=== PATIENT | male | born 1965 | race Caucasian/White ===

== ENCOUNTER 2024-10-02 11:29 | Outpatient (CLI) | payer OTHER, SELFPAY ==
--- OUTSIDE RECORDS SUMMARY | 2024-10-02 11:41 | XMS_ITS | Clinical Summary ---
Author Organization [facility] Address [address] [address] Phone Care Team Providers Care Cosmetology Instructor Name Role Phone Unavailable Primary Care Provider Unavailabl e Allergies Active Allergy Reactions Criticality Noted Date Comments Tanmay Inhibitors Other (see Comments) 12/21/2015 cough cough Medications ASPIRIN PO 81 mg. Active CINNAMON PO Take by mouth. Active Blood Glucose Monitoring Suppl (D-CARE GLUCOMETER) w/Device Kit Check BS once daily 1 Kit 06/17/2017 Active rOPINIRole (REQUIP) 1 MG Tablet TAKE 1 TABLET NIGHTLY 90 Tab 3 02/23/2018 Active simvastatin (ZOCOR) 20 MG Tablet TAKE 1 TABLET NIGHTLY 90 Tab 3 06/01/2018 Active FENOFIBRATE 160 MG Tablet TAKE 1 TABLET EVERY DAY 90 Tab 3 06/01/2018 Active esomeprazole (NEXIUM) 40 MG CAPSULE DELAYED RELEASE TAKE 1 CAPSULE EVERY DAY 90 Cap 3 06/08/2018 Active metFORMIN (GLUCOPHAGE) 1000 MG Tablet TAKE 1 TABLET BY MOUTH 2 TIMES DAILY (WITH MEALS). 180 Tab 2 08/20/2018 Active hydroCHLOROthia zide 25 MG Tablet Take 1 Tab by mouth daily. 90 Tab 3 12/11/2018 Active losartan (COZAAR) 100 MG Tablet TAKE 1 TABLET EVERY DAY 90 Tab 2 02/15/2019 Active diclofenac (VOLTAREN) 50 MG Tablet Delayed Response Take 1 Tab by mouth 2 times daily. 60 Tab 3 04/14/2019 Active Glucose Blood Strip Use once daily. DX E11.9 100 Strip 3 05/20/2019 Active candesartan (ATACAND) 32 MG Tablet Take 1 Tab by mouth daily. 90 Tab 06/01/2019 Active Active Problems Problem Noted Date Diagnosed Date Lumbar facet arthropathy 03/16/2019 Lumbar radiculopathy 03/16/2019 Type 2 diabetes mellitus wit hout complication, without long-term current use of insulin 10/26/2018 Lumbar foraminal stenosis 08/08/2017 SI (sacroiliac) joint dysfunction 08/08/2017 RLS (restless legs syndrome) 08/15/2015 HTN (hypertension) Dyslipidemia Acid reflux Sleep apnea Immunizations Immunization Administration Dates Next Due Influenza Vaccine, Quadrivalent, PF 05/03/2019,1 07/12/2017,06/17/2017 Pneumococcal Vaccine Adult - 23 Valent 8 Family History Medical History Relation Name Comments Heart Attack Father Cancer Mother brain tumor - g lioblastoma Heart Attack Mother Relation Name Status Comments Father Mother Social History Tobacco Use Types Packs/Day Years Used Date Smoking Tobacco: Former Cigarettes 1 15 0 07/24/1993 - 07/24/2008 Smokeless Tobacco: Never Tobacco Cessation:Counseling Given: No Alcohol Use Standard Drinks/Week Comments Yes 3 (1 standard drink = 0.6 oz pur e alcohol) PHQ-2 Answer Date Recorded PHQ-2 Score 0 02/01/2019 Sex and Gender Information Value Date Recorded Sex Assigned at Not on file Legal Sex Male 10:28 PM CDT Gender Identity Not on file Sexual Orientation Not on file Last Filed Vital Signs Vital Sign Reading Time Taken Comments Blood Pressure 112/60 05/03/2019 9:21 AM SALSA DANCE INSTRUCTOR Pulse 78 05/03/2019 9:21 AM SALSA DANCE INSTRUCTOR Temperature 36.7 C (98 F) 05/03/2019 9:21 AM SALSA DANCE INSTRUCTOR Respiratory Rate 20 05/03/2019 9:21 AM SALSA DANCE INSTRUCTOR Oxygen Saturation 98% 05/03/2019 9:21 AM SALSA DANCE INSTRUCTOR Inhaled Oxygen Concentration - - Weight 80.8 kg (178 lb 1.6 oz) 05/03/2019 9:21 A M SALSA DANCE INSTRUCTOR Height 167.6 cm (5' 6 ) 05/03/2019 9:21 AM SALSA DANCE INSTRUCTOR Body Mass Index 28.75 05/03/2019 9:21 AM SALSA DANCE INSTRUCTOR Plan of Treatment Health Maintenance Due Date Last Done Comments Diabetes: Eye Exam 1966 Diabetes: Foot Exam 1966 Hepatitis C Virus (HCV) Screening 1966 TdaP Immunization 1966 Hepatitis B Immunization (1 of 3 - 19+ 3-dose series) 1985 Cologuard 2016 Immunochemical Fecal Occult Blood 2016 Zoster Immunization (1 of 2) 2016 Pneumococcal Immunization (50+ years) (2 of 2 - PCV) 05/11/2019 05/11/2018 Diabetes: Hemoglobin A1c 04/09/2020 020, 04/25/2019, 10/24/2018, Additional history exists Diabetes: Nephropathy Screening 10/07/2020 10/08/2019, 04/25/2019, 04/25/2019, Additional history exists Colonoscopy 07/25/2023 07/24/2018 Colorectal Cancer Screening 07/25/2023 Influenza Immunization (#1) 01/25/202401/2019, 05/11/2018, 06/17/2017 SARS-COV-2 Immunization ( season) 2024 06/09/2021, 08/23/2020 Respiratory Syncytial Virus (RSV) Immunization (Adult) (1 - 1-dose 75+ series) 2041 07/24/2018 Pneumococcal Immunization Combined Discontinued 05/11/2018 PSA Discussion Completed 10/08/2019, 05/2018, 09/27/2017 Meningococcal Immunization (ACWY) Aged Out No longer eligible based on patient's age to complete this topic Rotavirus Immunization Aged Out No lo nger eligible based on patient's age to complete this topic Procedures Procedure Name Priority Date/Time Associated Diagnosis Comments CMP (COMPREHENSIVE METABOLIC PANEL) Routine 10/08/2019 Well controlled diabetes mellitus (HCC) HEMOGLOBIN A1C W/ ESTIMATED GLUCOSE Routine 10/08/2019 Well controlled diabetes mellitus (HCC) PSA SCREEN Routine 10/08/2019 Screening for prostate cancer from Last 3 Months or Most Recently Relevant to Health Maintenance Results * HEMOGLOBIN A1C W/ ESTIMATED GLUCOSE (10/08/2019) HGB-A1C 6.4 % Blood specimen (specimen) 10/08/2019 us Ida Reed MD CHEMISTRY ORDERABLES Final Result * PSA SCREEN (10/08/2019) PSA (PROSTATE SPECIFIC ANTIGEN) 1.23 ng/mL Blood specimen (specimen) 10/08/2019 us Ida Reed MD CHEMISTRY ORDERABLES Final Result * CMP (COMPREHENSIVE METABOLIC PANEL) (10/08/2019) Blood specimen (specimen) us Ida Reed MD CHEMISTRY ORDERABLES Final Result from Last 3 Months or Most Recently Relevant to Health Maintenance
--- OUTSIDE RECORDS SUMMARY | 2024-10-02 11:41 | XMS_ITS | Clinical Summary ---
Author Organization [facility] Address [facility] [place] [address] Care Team Providers Care Division Controller Name Role Phone Tommie Rose MD Unavailable [phone] Ana Fajardo NP Unavailable [phone] Non-Staff, Provider Primary Care Provider Unavai lable Allergies Active Allergy Reactions Criticality Noted Date Comments Tanmay Inhibitors Cough,Other (see comment) 2015 cough Medications losartan 100 MG tablet Take 1 tablet by mouth daily. 10/31/2015 Active esomeprazole 40 MG capsule Take 40 mg by mouth every morning before breakfast. Active ropinirole 1 MG tablet Take 1 mg by mouth nightly at bedtime. Active simvastatin 20 MG tablet Take 20 mg by mouth nightly at bedtime. Active aspirin EC 81 MG EC tablet Take 81 mg by mouth daily. Active hydrochlorothia zide 25 MG tablet Take 25 mg by mouth every morning. Active fenofibrate 160 MG tablet Take 160 mg by mouth daily. 4 08/18/2018 Active metFORMIN 1000 MG tablet Take 1,000 mg by mouth 2 (two) times daily. With meals 2 11/07/2018 Active Active Problems Problem Noted Date Diagnosed Date Acid reflux 11/09/2018 Dyslipidemia 11/09/2018 Sebaceous cyst 11/06/2018 Type 2 diabetes mellitus wit hout complication, without long-term current use of insulin ([facility]) 10/26/2018 Lumbar foraminal stenosis 08/08/2017 SI (sacroiliac) joint dysfunction 08/08/2017 Shortness of breath on exertion 12/21/2015 RLS (restless legs syndrome) 08/15/2015 Sleep apnea HTN (hypertension) Hyperlipidemia, mixed Family history of heart disease Family History Medical History Relation Comments Cancer Brother Heart Attack Father Cancer Mother Diabetes Mother Heart Attack Mother Relation Status Comments Brother Father Mother Social History Tobacco Use Types Packs/Day Years Used Date Smoking Tobacco: Former Cigarettes 1 15 1 994 - 2009 Smokeless Tobacco: Never Alcohol Use Standard Drinks/Week Comments Yes 23.3 (1 standard drink = 0.6 oz pure alcohol) Sex and Gender Information Value Date Recorded Sex Assigned at Male 11/06/2018 9:45 AM CDT Legal Sex Male 8:54 AM CDT Gender Identity Male 11/06/2018 9:45 AM CDT Sexual Orientation Not on file Last Filed Vital Signs Vital Sign Reading Time Taken Comments Blood Pressure 133/85 11/09/2018 2:29 PM CDT Pulse 85 11/09/2018 2:29 PM CDT Temperature 36.3 C (97.3 F) 11/09/2018 2:29 PM CDT Respiratory Rate 16 12/21/2015 12:48 PM CDT Oxygen Saturation - - Inhaled Oxygen Concentration - - Weight 87.5 kg (193 lb) 12/21/2015 12:48 PM CDT Height 170.2 cm (5' 7 ) 12/21/2015 12:48 PM CDT Body Mass Index 30.23 12/21/2015 12:48 PM CDT Plan of Treatment Health Maintenance Due Date Last Done Comments Colorectal Cancer Screening Colonoscopy (10 Years) 1966 Kidney Health Evaluation 1966 Hemoglobin A1C 1966 Lipid Panel 1966 Annual Physical 1969 Diabetes: Retinopathy Eye Exam 1984 Hepatitis C 1984 DTaP, Tdap and Td Vaccines ( 1 - Tdap) 1985 Hepatitis B Vaccines (1 of 3 - 19+ 3-dose series) 1985 Zoster Vaccines (1 of 2) 2016 Pneumococcal Vaccine: 50+ Ye ars (2 of 2 - PCV) 05/11/2019 05/11/2018 COVID-19 Vaccine ( - 2023-2 5 season) 2024 Meningococcal B Vaccine Aged Out No l onger eligible based on patient's age to complete this topic Meningococcal Vaccine Aged Out No melony melina eligible based on patient's age to complete this topic RSV Immunizations Under 20 Months Aged Out No longer eligible based on patient's age to complete this topic Insurance [employer] Care Teams Division Controller Relationship Specialty Start Date End Date Non-Staff, Provider [address] [place] [address] PCP - General 12/21/15 Tommie Rose MD Britton Sort Supervisor CARDIOVASCULAR DISEASE 12/13/15 Ana Fajardo NP [address] [place] [address] NURSE PRACTITIONER 12/13/15
[2024-10-02 12:51] LABS: Alanine Aminotransferase 45 U/L (6-50); Albumin Level 4.9 g/dL (3.5-5.1); Alkaline Phosphatase 41 U/L (38-126); Anion Gap 11 mmol/L (4-12); Aspartate Amino Transferase 55 U/L (17-59); Bilirubin,Total 0.8 mg/dL (0.2-1.3); Blood Urea Nitrogen 19 mg/dL (9-20); Calcium 9.9 mg/dL (8.4-10.2); Carbon Dioxide 27 mmol/L (22-30); Chloride 101 mmol/L (98-107); Estimated Glomerular Filt Rate 49; Glucose 127 mg/dL (65-110); Potassium 4.4 mmol/L (3.4-5.0); Sodium 139 mmol/L (137-145)
[2024-10-02 13:19] LABS: Prostate Specific Antigen 2.1 ng/mL (< OR = 4.0)
== END 2024-10-02 11:30 | disposition home or self-care (01) ==
DX: N40.0 Benign prostatic hyperplasia without lower urinary tract symptoms (principal); I10 Essential (primary) hypertension; E11.9 Type 2 diabetes mellitus without complications
CPT/HCPCS: 36415; 80053; 83036; 84153; G0103

== ENCOUNTER 2025-04-28 10:26 | Outpatient (CLI) | payer OTHER, SELFPAY ==
[2025-04-28 10:50] LABS: Hematocrit 41.2 % (42.0-52.0); Hemoglobin 14.0 g/dL (14.0-18.0); Immature Granulocyte Percent A 0.2 % (0-0.5); Lymphocytes Absolute Auto 1.94 K/mm3 (0.9-3.2); Mean Corpuscular HGB Conc 34.0 g/dl (32-36); Mean Corpuscular Hemoglobin 31.0 pg (26-34); Mean Corpuscular Volume 91.4 fl (80-100); Nucleated Red Blood Cells Absolute Auto 0.000 K/mm3 (0.0-0.012); Nucleated Red Blood Cells Perc 0.0 % (0.0-0.2); Platelet Count Result 183 k/mm3 (150-375); Red Blood Count 4.51 M/mm3 (4.6-6.20); White Blood Count 5.9 K/mm3 (4.5-10.0)
[2025-04-28 10:55] LABS: Add Urine Microscopic? YES; Appearance Urine Clear (Clear); Glucose Urine UA Trace mg/dL (Negative); Leukocyte Esterase Ur Negative LEU/UL (Negative); Nitrate Urine Negative (Negative); Non Pathogenic Casts 0-2; Specific Grav Ur 1.026 (1.001-1.035)
[2025-04-28 10:59] LABS: Hemoglobin A1C 7.5 % (<5.7)
[2025-04-28 11:03] LABS: Anion Gap 5 mmol/L (4-12); Blood Urea Nitrogen 27 mg/dL (9-20); Calcium 9.4 mg/dL (8.4-10.2); Carbon Dioxide 27 mmol/L (22-30); Chloride 107 mmol/L (98-107); Cholesterol 151 mg/dL (0-200); Estimated Glomerular Filt Rate 52; Glucose 144 mg/dL (65-110); HDL Direct 36 mg/dL; Potassium 4.2 mmol/L (3.4-5.0); Sodium 139 mmol/L (137-145); Triglycerides 138 mg/dL (<150)
[2025-04-28 11:39] LABS: Prostate Specific Antigen 1.3 ng/mL (< OR = 4.0)
--- OUTSIDE RECORDS SUMMARY | 2025-04-28 11:45 | XMS_ITS | Clinical Summary ---
Author Organization [facility] Address [address] [address] Phone Care Team Providers Care Head Sampler Name Role Phone Unavailable Primary Care Provider [...] Comments Blood Pressure 112/60 05/03/2019 9:21 AM BUTTON PUSHER Pulse 78 05/03/2019 9:21 AM BUTTON PUSHER Temperature 36.7 C (98 F) 05/03/2019 9:21 AM BUTTON PUSHER Respiratory Rate 20 05/03/2019 9:21 AM BUTTON PUSHER Oxygen Saturation 98% 05/03/2019 9:21 AM BUTTON PUSHER Inhaled Oxygen Concentration - - Weight 80.8 kg (178 lb 1.6 oz) 05/03/2019 9:21 A M BUTTON PUSHER Height 167.6 cm (5' 6) 05/03/2019 9:21 AM BUTTON PUSHER Body Mass Index 28.75 05/03/2019 9:21 AM BUTTON PUSHER Plan of Treatment Health Maintenance Due Date Last Done Comments Diabetes: Eye Exam 1966 Diabetes: Foot Exam 1966 Hepatitis C Virus (HCV) Screening 1966 TdaP Immunization 1966 Hepatitis B Immunization (1 of 3 - 19+ 3-dose series) 1985 Cologuard 10/07/2011 Immunochemical Fecal Occult Blood 10/07/2011 Zoster Immunization (1 of 2) 2016 Pneumococcal Immunization (50+ years) (2 of 2 - PCV) 05/11/2019 05/11/2018 Diabetes: Hemoglobin A1c 04/09/2020 020, 04/25/2019, 10/24/2018, Additional history exists Diabetes: Nephropathy Screening 10/07/2020 10/08/2019, 04/25/2019, 04/25/2019, Additional history exists Colonoscopy 07/25/2023 07/24/2018 Colorectal Cancer Screening 07/25/2023 Influenza Immunization (#1) 01/24/202501/2019, 05/11/2018, 06/17/2017 SARS-COV-2 Immunization ( season) 2025 06/09/2021, 08/23/2020 Respiratory Syncytial Virus (RSV) Immunization (Adult) (1 - 1-dose 75+ series) 2041 Pneumococcal Immunization Combined Discontinued 05/11/2018 PSA Discussion Completed 10/08/2019, 05/2018, 09/27/2017 Human Papillomavirus (HPV) Immunization Aged Out No longer eligible based on patient's age to complete this topic Meningococcal Immunization (ACWY) Aged Out No longer [...]
== END 2025-04-28 10:27 | disposition home or self-care (01) ==
DX: E55.9 Vitamin D deficiency, unspecified (principal); I10 Essential (primary) hypertension; E78.5 Hyperlipidemia, unspecified; E11.9 Type 2 diabetes mellitus without complications
CPT/HCPCS: 36415; 80048; 80061; 81001; 82306; 83036; 84153; 85025